=== PATIENT | male | born 1990 | race Caucasian/White ===

== ENCOUNTER 2017-07-03 05:47 | Day surgery (SDC) | payer MEDICAID, OTHER, SELFPAY ==
[~2017-07-03] VITALS: Ht 172.7 cm; Wt 73.0 kg
[2017-07-03] MEDS ORDERED: DIPH,PERTUSS(ACELL),TET VAC/PF 0.5 ML IM-VACC ONE ×2 (07:00→07:45)
[2017-07-03] MEDS ORDERED: LIDOCAINE 1%, 20ML SQ ONE (07:00)
[2017-07-03] MEDS ORDERED: LIDOCAINE 1%, 20ML ONE (07:32)
[2017-07-03] MEDS ORDERED: MORPHINE SULFATE 4 MG/ML, 1ML IVPush PRN (10:00)
[2017-07-03] MEDS ORDERED: ONDANSETRON 2MG/ML, 2ML IVPush ONE (10:00)
[2017-07-03] MEDS ORDERED: CEFAZOLIN PMX 1GM/50ML 50 ML IVPB ONE (10:00)
[2017-07-03] MEDS ORDERED: SODIUM CHLORIDE 0.9% 1,000 ML IV ONE (10:12)
[2017-07-03 10:19] LABS: HEMATOCRIT 48.5 % (39.2-51.8); WHITE BLOOD COUNT 11.6 x10^3/uL (3.4-10)
[2017-07-03 10:29] LABS: BLOOD UREA NITROGEN 12 mg/dL (7-18)
[2017-07-03] MEDS ORDERED: SODIUM CHLORIDE FLUSH 10ML SYR IVF PRN (10:30)
[2017-07-03] MEDS ORDERED: CEFAZOLIN PMX 1GM/50ML 50 ML ONE (10:52)
[2017-07-03] MEDS ORDERED: ONDANSETRON 2MG/ML, 2ML ONE ×2 (10:52→13:00)
[2017-07-03] MEDS ORDERED: BACITRACIN 50,000 UNIT ONE (11:55)
[2017-07-03] MEDS ORDERED: BUPIVACAINE/PF 0.5% ONE (11:55)
[2017-07-03] MEDS ORDERED: NEOSPORIN OINT. PKT 1 PACKET ONE (11:55)
[2017-07-03] MEDS ORDERED: MIDAZOLAM 1 MG/ML, 2ML ONE (12:35)
[2017-07-03] MEDS ORDERED: FENTANYL PF 250 MCG/5ML ONE (12:35)
[2017-07-03] MEDS ORDERED: CEFAZOLIN 1,000 MG ONE (12:36)
[2017-07-03] MEDS ORDERED: DEXAMETHASONE 4 MG/ML, 1ML ONE ×4 (13:00)
[2017-07-03] MEDS ORDERED: PROPOFOL 10 MG/ML, 20ML ONE (13:00)
[2017-07-03] MEDS ORDERED: MEPERIDINE/PF 25MG/0.5ML IVPush PRN (13:00)
[2017-07-03] MEDS ORDERED: FENTANYL PF 100 MCG/2ML IV PRN (13:00)
[2017-07-03] MEDS ORDERED: OXYcodone 5 MG/5 ML ORAL.SOL UDC PO PRN (13:00)
[2017-07-03] MEDS ORDERED: HYDROmorphone 1 MG/ML, 1ML IV PRN (13:00)
[2017-07-03] MEDS ORDERED: ONDANSETRON 2MG/ML, 2ML IVPush PRN (13:00)
[2017-07-03] MEDS ORDERED: ACETAMINOPHEN 325 MG TABLET PO PRN (13:00)
[2017-07-03] MEDS ORDERED: KETOROLAC 30 MG/1 ML ONE (13:01)
[2017-07-03] MEDS ORDERED: LIDOCAINE-MPF 2% ,5ML ONE (13:01)
[2017-07-03] MEDS ORDERED: FENTANYL PF 100 MCG/2ML ONE (13:24)
[2017-07-03] MEDS ORDERED: OXYcodone 5 MG/5 ML ORAL.SOL UDC ONE (13:24)
[2017-07-03 17:17] VITALS: BP 122/77
[2017-07-03] MEDS ORDERED: OXYC5TAB2 PO (17:31)
== END 2017-07-03 18:25 | disposition home or self-care (01) ==
LOC: ED 10:11 → EDIP 10:12 → OR 10:12 → UNDOADMIN 10:12 → ED 10:34 → EDIP 15:00 → 4NOR 15:00 → UNDODISIN 18:25 → OR 18:25
PROVIDERS: ATTEND Orthopaedic Surgery
DX: S66.221A Laceration of extensor muscle, fascia and tendon of right thumb at wrist and hand level, initial encounter (principal); S66.821A Laceration of other specified muscles, fascia and tendons at wrist and hand level, right hand, initial encounter; X58.XXXA Exposure to other specified factors, initial encounter; Y93.89 Activity, other specified; Y92.89 Other specified places as the place of occurrence of the external cause; Y99.8 Other external cause status; M79.5 Residual foreign body in soft tissue
CPT/HCPCS: 25101; 25270; 36415; 73100; 73110; 73130; 80048; 82040; 85025; 90471; 90715; 96365; 96375; 99285; J0690; J1100; J1885; J2250; J2405; J2704; J3010; J3490; J7030

== ENCOUNTER 2021-01-12 15:32 | Emergency (ER) | payer SELFPAY ==
[~2021-01-12] VITALS: Ht 172.7 cm; Wt 78.0 kg
[~2021-01-12 15:32] MED LIST: OXYC5TAB2 PO
[2021-01-12] MEDS ORDERED: BUPIVACAINE/PF-EPI 0.25% 1:200K SQ ONE (16:00)
[2021-01-12] MEDS ORDERED: LIDOCAINE-MPF 1%, 5ML INFIL ONE (16:00)
[2021-01-12] MEDS ORDERED: MORPHINE SULFATE 4 MG/ML, 1ML IVPush PRN (16:00)
[2021-01-12] MEDS ORDERED: SODIUM CHLORIDE FLUSH 10ML SYR IVF ONE (16:00)
[2021-01-12] MEDS ORDERED: DIPH,PERTUSS(ACELL),TET VAC/PF 0.5 ML IM-VACC ONE ×2 (16:00→18:51)
[2021-01-12] MEDS ORDERED: ONDANSETRON 2MG/ML, 2ML IVPush ONE (16:00)
--- NOTE | 2021-01-12 16:17 | NUR ---
pt to [facility]avin w myself and tech
[2021-01-12 16:34] LABS: ALBUMIN 4.3 g/dL (3.4-5.0); ANION GAP 5 mmol/L (5-15); CALCIUM 8.8 mg/dL (8.5-10.1); CHLORIDE 110 mmol/L (98-107)
[2021-01-12 16:41] LABS: BASOPHILS % (AUTO) 1 % (0-1); EOSINOPHILS % (AUTO) 1 % (1-7); LYMPHOCYTES % (AUTO) 13 % (22-44); MEAN CORPUSCULAR HEMOGLOBIN 29.1 pg (27.5-34.5); MEAN CORPUSCULAR HGB CONC 33.4 g/dL (33.2-36.2); MEAN PLATELET VOLUME 8.9 fL (7.4-10.4); MONOCYTES % (AUTO) 8 % (2-9); NEUTROPHILS % (AUTO) 78 % (42-75); PLATELET COUNT 223 x10^3/uL (130-400); RED CELL DISTRIBUTION WIDTH 13.5 % (9.4-14.8)
[2021-01-12] MEDS ORDERED: DEXTROSE 50%, 50ML SYRINGE ONE (16:50)
[2021-01-12] MEDS ORDERED: OMNIPAQUE 350 MG/ML, 100ML BOTTLE ONE (16:57)
--- NOTE | 2021-01-12 16:59 | NUR ---
aubrie (rn) is assuming care of this pt at this time. sbar was exchanged at the bedside.
--- NOTE | 2021-01-12 17:00 | NUR ---
Pt back from imaging, NADN. Complains of leg pain at wound site, bleeding controlled.
[2021-01-12] MEDS ORDERED: CEFAZOLIN PMX 1GM/50ML 50 ML IV ONE (17:23)
--- NOTE | 2021-01-12 18:28 | NUR ---
JAI Ashton remains at bedside suturing.
--- NOTE | 2021-01-12 18:49 | NUR ---
Report to JUANA Reilly. Pt care transfered at this time. Pt denies any needs at this time.
[2021-01-12] MEDS ORDERED: CEFAZOLIN PMX 1GM/50ML 50 ML ONE (18:51)
--- NOTE | 2021-01-12 18:58 | NUR ---
ASSUMED PT CARE FROM JUANA LEIVA. PT RESTING IN DEZ CARBONE AT THIS TIME, PER PT NO NEEDS AT THIS TIME, PT'S FRIEND AT BEDSIDE, LORETTA.
--- NOTE | 2021-01-12 19:07 | NUR ---
PT STATES HE HAD TDAP VACCINE WITHIN LAST 5 YEARS AND DOES NOT WANT IT.
[2021-01-12] MEDS ORDERED: NEOSPORIN OINT. PKT 1 PACKET ONE (19:08)
[2021-01-12] MEDS ORDERED: OXYcodone/APAP 5/325MG TABLET ONE (19:29)
[2021-01-12] MEDS ORDERED: OXYcodone/APAP 5/325MG TABLET PO ONE (19:30)
[2021-01-12 19:33] VITALS: BP 126/80
[2021-01-12] MEDS ORDERED: MIDAZOLAM 1 MG/ML, 2ML ONE (21:29)
== END 2021-01-12 19:42 | disposition home or self-care (01) ==
LOC: ED 19:30
DX: S81.812A Laceration without foreign body, left lower leg, initial encounter (principal); R07.89 Other chest pain; M54.2 Cervicalgia; R10.84 Generalized abdominal pain; F17.200 Nicotine dependence, unspecified, uncomplicated; V89.2XXA Person injured in unspecified motor-vehicle accident, traffic, initial encounter; Y93.89 Activity, other specified; Y92.89 Other specified places as the place of occurrence of the external cause; Y99.8 Other external cause status
CPT/HCPCS: 12032; 36415; 71045; 71260; 72020; 72050; 73564; 73590; 74177; 80048; 82040; 85025; 96365; 99285; J0690; Q9967

== ENCOUNTER 2021-01-14 09:52 | Emergency (ER) | payer SELFPAY ==
[~2021-01-14] VITALS: Ht 172.7 cm; Wt 77.3 kg
[2021-01-14 10:10] VITALS: BP 118/71
[2021-01-14] MEDS ORDERED: NEOSPORIN OINT. PKT 1 PACKET ONE (10:33)
--- NOTE | 2021-01-14 11:00 | NUR ---
ER JAI WAS IN TO SEE PT AND ASSESS R LOWER LEG WOUND AND DISCUSS TREATMENT. DRESSING REMOVED AND WOUND CLEANED WITH STERILE NS. NEW DRESSING APPLIED WITH ABX OINTMENT, ADAPTIC, GAUZE, KERLIX, CAST PADDING, AND R LONG LEG SPLINT. CMS INTACT. INSTRUCTED PT TO CONTINUE USING SPLINT UNTIL WEDNESDAY OF THIS WEEK, BUT CHECK WOUND AND CHANGE DRESSING EVERY 1-2 DAYS. PT VERBALIZES UNERSTANDING. EXTRA WOUND CARE SUPPLIES PROVIDED. PT ALSO HAS ROADRASH/WOUND TO L BUTTOCK. WOUND CLEANED, ABX OINTMENT APPLIED, COVERED WITH OPTIFOAM DRESSING. D/C INSTRUCTIONS & F/U APPT FOR SUTURE REMOVAL IN 10 DAYS RV'WD WITH PT. PT AMBULATED OUT WITH GIRLFRIEND ON CRUTCHES.
== END 2021-01-14 11:16 | disposition home or self-care (01) ==
LOC: ED 10:55
DX: S81.811D Laceration without foreign body, right lower leg, subsequent encounter (principal); X58.XXXD Exposure to other specified factors, subsequent encounter
CPT/HCPCS: 99281